=== PATIENT | female | born 1995 | race Caucasian/White ===

== ENCOUNTER 2019-01-12 02:44 | Emergency (ER) | payer MEDICAID ==
[~2019-01-12] VITALS: Ht 124.5 cm; Wt 40.9 kg
[2019-01-12 02:51] VITALS: Ht 124.5 cm; Wt 40.9 kg
[2019-01-12 03:13] LABS: BASOPHILS 0.7 % (0-2); EOSINOPHILS 3.6 % (0-7); HEMATOCRIT 36.5 % (36.0-48.0); HEMOGLOBIN 12.7 g/dL (12-16); IMMATURE GRANULOCYTES 0.1 % (0-5); LYMPHOCYTES 37.8 % (15-50); MCH 30.9 pg (26.0-34.0); MCHC 34.8 g/dL (31.0-37.0); MCV 88.8 fL (80.0-100.0); MEAN PLATELET VOLUME 10.1 fL (7.4-10.4); MONOCYTES 8.3 % (2-11); NEUTROPHILS 49.5 % (40-80); PLATELET COUNT 233 10x3/uL (130-400); RBC 4.11 10x6/uL (4.00-5.40); RDW 13.4 % (11.5-14.5); WBC 9.2 10x3/uL (4.8-10.8)
[2019-01-12 03:23] LABS: APPEARANCE CLEAR (CLEAR); BACTERIA NONE SEEN /hpf (NONE SEEN); BILIRUBIN NEGATIVE (NEGATIVE); COLOR YELLOW (YELLOW); EPITHELIAL CELLS 0-5 /hpf (0-5); GLUCOSE NEGATIVE (NEGATIVE); KETONE NEGATIVE (NEGATIVE); NITRITE NEGATIVE (NEGATIVE); PROTEIN NEGATIVE (NEGATIVE); UROBILINOGEN NORMAL (NORMAL); WHITE CELLS - URINE RARE /hpf (0-5)
[2019-01-12 03:29] LABS: ALBUMIN 3.9 g/dL (3.4-5.0); ALKALINE PHOSPHATASE 53 U/L (46-116); ALT (SGPT) 32 U/L (10-68); BILIRUBIN - TOTAL 0.21 mg/dL (0.2-1.3); CALC OSMOLALITY 276 mosm/kg (275-300); CALCIUM 8.9 mg/dL (8.5-10.1); CARBON DIOXIDE 26.4 mmol/L (21.0-32.0); CHLORIDE - SERUM 104 mmol/L (98-107); CREATININE - SERUM 0.7 mg/dL (0.6-1.3); GLUCOSE 111 mg/dL (74-106); PROTEIN - SERUM 7.1 g/dL (6.4-8.2); SODIUM 138 mmol/L (136-145); UREA NITROGEN 12 mg/dL (7-18); eGFR NON AFRICAN AMERICAN > 90 mL/min (90-120)
[2019-01-12 03:50] LABS: HCG - QUANTITATIVE (MATERNAL) 8091 mIU/mL
[2019-01-12 06:16] VITALS: BP 112/74
== END 2019-01-12 06:20 | disposition home or self-care (01) ==
LOC: D.ER 02:44
PROVIDERS: Family Medicine
DX: O20.0 Threatened abortion (principal); Z3A.08 8 weeks gestation of pregnancy

== ENCOUNTER 2019-01-13 11:36 | Emergency (ER) | payer MEDICAID ==
[~2019-01-13] VITALS: Ht 149.9 cm; Wt 40.9 kg
[2019-01-13 11:57] VITALS: Ht 149.9 cm; Wt 40.9 kg
[2019-01-13 12:15] LABS: BASOPHILS 0.5 % (0-2); HEMATOCRIT 40.6 % (36.0-48.0); HEMOGLOBIN 13.9 g/dL (12-16); IMMATURE GRANULOCYTES 0.2 % (0-5); LYMPHOCYTES 28.2 % (15-50); MCH 30.5 pg (26.0-34.0); MCHC 34.2 g/dL (31.0-37.0); MCV 89.2 fL (80.0-100.0); MEAN PLATELET VOLUME 10.1 fL (7.4-10.4); NEUTROPHILS 60.1 % (40-80); PLATELET COUNT 255 10x3/uL (130-400); RBC 4.55 10x6/uL (4.00-5.40); RDW 13.7 % (11.5-14.5); WBC 8.2 10x3/uL (4.8-10.8)
[2019-01-13 12:41] LABS: HCG URINE POSITIVE (NEGATIVE)
[2019-01-13 12:44] LABS: ALKALINE PHOSPHATASE 53 U/L (46-116); ALT (SGPT) 31 U/L (10-68); CALC OSMOLALITY 277 mosm/kg (275-300); CALCIUM 9.1 mg/dL (8.5-10.1); CARBON DIOXIDE 28.3 mmol/L (21.0-32.0); CHLORIDE - SERUM 106 mmol/L (98-107); CREATININE - SERUM 0.7 mg/dL (0.6-1.3); GLUCOSE 94 mg/dL (74-106); POTASSIUM - SERUM 4.4 mmol/L (3.5-5.1); PROTEIN - SERUM 7.4 g/dL (6.4-8.2); SODIUM 140 mmol/L (136-145); UREA NITROGEN 9 mg/dL (7-18); eGFR NON AFRICAN AMERICAN > 90 mL/min (90-120)
[2019-01-13 12:47] LABS: APPEARANCE HAZY (CLEAR); BILIRUBIN NEGATIVE (NEGATIVE); COLOR YELLOW (YELLOW); GLUCOSE NEGATIVE (NEGATIVE); KETONE NEGATIVE (NEGATIVE); NITRITE NEGATIVE (NEGATIVE); PROTEIN NEGATIVE (NEGATIVE); UROBILINOGEN NORMAL (NORMAL)
[2019-01-13 12:49] LABS: BACTERIA FEW /hpf (NONE SEEN); EPITHELIAL CELLS 0-5 /hpf (0-5); WHITE CELLS - URINE 0-5 /hpf (0-5)
[2019-01-13 13:06] LABS: HCG - QUANTITATIVE (MATERNAL) 5993 mIU/mL
[2019-01-13 14:58] VITALS: BP 115/68
== END 2019-01-13 14:59 | disposition home or self-care (01) ==
LOC: D.ER 11:36
PROVIDERS: Emergency Medicine
DX: O20.0 Threatened abortion (principal); Z3A.08 8 weeks gestation of pregnancy

== ENCOUNTER 2020-04-20 11:55 | Outpatient (CLI) | payer MEDICAID ==
[2019-01-13 11:57] VITALS: BMI 18.2
== END 2020-04-20 12:36 | disposition home or self-care (01) ==
LOC: D.LDO 11:55
PROVIDERS: ATTEND Student in an Organized Health Care Education/Training Program
DX: O36.5990 Maternal care for other known or suspected poor fetal growth, unspecified trimester, not applicable or unspecified (principal)